=== PATIENT | female | born 1980 | race Two or more races ===

== ENCOUNTER 2021-11-30 07:59 | Outpatient (CLI) | payer BC, OTHER ==
[2021-11-30 09:53] LABS: HEMATOCRIT 39.4 % (31.2-41.9); MEAN CORPUSCULAR HEMOGLOBIN 33.8 uug (24.7-32.8); MEAN CORPUSCULAR VOLUME 97.1 fL (75.5-95.3); PLATELET COUNT (AUTO) 260 K/uL (179-408)
[2021-11-30 10:15] LABS: *BILIRUBIN,URIN NEGATIVE (NEGATIVE); *BLOOD, URINE 1+ (NEGATIVE); *CLARITY,URINE CLEAR (CLEAR); *COLOR,URINE YELLOW (YELLOW); *KETONES,URINE NEGATIVE (NEGATIVE); *UROBILINOGEN,URINE 0.2 E.U./dl (NORMAL); LEUKOCYTE ESTERASE ,URINE NEGATIVE (NEGATIVE); NITRITE, URINE NEGATIVE (NEGATIVE); PH,URINE 5.5 (5.0-8.0); UGLUCOSE NEGATIVE (NEGATIVE)
[2021-11-30 10:48] LABS: THYROID STIMULATING HORMONE 1.853 mIU/mL (0.358-3.740)
[2021-11-30 11:18] LABS: BACTERIA,URINE FEW /HPF (NONE SEEN); RBC,URINE 0-3 /HPF (0-3); SQUAMOUS EPITHELIAL CELL,UR FEW /HPF (NONE SEEN); WBC,URINE 0-3 /HPF (0-3)
[2021-12-01 08:06] LABS: FOLLICLE STIMULATION HORMONE 6.8 mIU/mL (.); LUTEINIZING HORMONE 6.9 mIU/mL (.)
== END 2021-11-30 23:59 | disposition home or self-care (01) ==
LOC: LAB 07:59
PROVIDERS: ATTEND Family Medicine
DX: Z00.00 Encounter for general adult medical examination without abnormal findings (principal); N95.9 Unspecified menopausal and perimenopausal disorder
CPT/HCPCS: 36415; 82306; 83001; 83002; 84443; 85025